=== PATIENT | female | born 1990 | race Caucasian/White ===

== ENCOUNTER → 2023-05-11 09:35 | Outpatient (CLI) | payer OTHER, SELFPAY ==
[2023-05-11 10:28] LABS: Influenza A - CEPHEID Flu A NEGATIVE (NEGATIVE); Influenza B - CEPHEID Flu B NEGATIVE (NEGATIVE); Respiratory Syncytial Virus Negative (Negative)
[2023-05-11 10:57] LABS: COVID-19 CEPHEID 4-PLEX PCR Negative (Negative)
== END ==
PROVIDERS: Visit Provider Physician Assistant
DX: R05.9 Cough, unspecified (principal); R09.81 Nasal congestion
CPT/HCPCS: 0241U

== ENCOUNTER → 2023-09-25 07:39 | Outpatient (CLI) | payer OTHER, SELFPAY ==
--- NOTE | 2023-09-25 07:42 | DI.MRI.S_ITS ---
PROCEDURE: MR BRAIN (IAC) WWO CON INDICATIONS: OTALGIA/TINNITUS/VERGITO TECHNIQUE: Noncontrast sagittal T1 spin echo, axial FLAIR, axial gradient echo, axial diffusion and ADC through the brain. Axial thin-slice 3D CISS, coronal TruFISP, axial T1 spin echo with fat saturation through the internal auditory canals. After the administration of contrast, thin slice axial and coronal T1 spin echo with fat saturation through the internal auditory canals, and axial and coronal and sagittal T1 spin echo with fat saturation through the brain. COMPARISON: None. FINDINGS: Image quality: Excellent. Cerebellopontine angles: No cerebellopontine angle masses. Inner ear structures appear normally formed. No suspicious enhancement in the internal auditory canal or along the course of the 7th cranial nerve. CSF spaces: Ventricles are normal in size and shape. No extra-axial fluid collections. Basal cisterns are patent. Brain: No intracranial bleeds or mass effects. Jeronimo-white matter interface is intact. No abnormal intracranial enhancement. Diffusion weighted images demonstrate no acute ischemic insults. Brainstem appears normal. Normal intravascular flow voids are present. Skull and face: Calvarial marrow signal is normal. Orbits appear normal. Sinuses: Sinuses and mastoids are clear. IMPRESSION: No significant abnormality is seen. Specifically, no masses or abnormal enhancement are seen within the cerebellopontine angle cisterns or within the internal auditory canals. Dictated by: Ramin Elder M.D. on 09/25/2023 at 9:49 Approved by: Ramin Elder M.D. on 09/25/2023 at 9:50
== END ==
LOC: MRI 07:40
PROVIDERS: PCP Family Medicine; Referring Provider Otolaryngology; Visit Provider Otolaryngology
DX: H92.01 Otalgia, right ear (principal); H93.11 Tinnitus, right ear; H93.291 Other abnormal auditory perceptions, right ear; H93.8X1 Other specified disorders of right ear; R42 Dizziness and giddiness; R20.2 Paresthesia of skin; G44.89 Other headache syndrome
CPT/HCPCS: 70553; A9579

== ENCOUNTER 2024-10-28 10:18 | Emergency (ER) | payer OTHER, SELFPAY ==
[2024-10-28 10:23] VITALS: BP 126/80; PULSE 88; RESP 16; TEMP 36.1; O2SAT 99; BMI 34.0
--- NOTE | 2024-10-28 12:08 | DI.CT.S_ITS ---
PROCEDURE: CT ABDOMEN PELVIS W CON INDICATIONS: Intractable vomiting, on semaglutide TECHNIQUE: After the administration of intravenous contrast, axial sections acquired from the lung bases to the pubic symphysis. Coronal and sagittal reformats were performed. For radiation dose reduction, the following was used: automated exposure control, adjustment of mA and/or kV according to patient size. COMPARISON: None. FINDINGS: Image quality: Diagnostic. Lower Chest: No significant findings. ABDOMEN: Liver: No solid mass. Gallbladder: No radiopaque gallstones or wall thickening. Biliary ducts: No biliary dilation. Pancreas: No ductal dilation. Spleen: Size is within normal limits. Adrenal Glands: No adrenal nodules. Kidneys and Ureters: Punctate nonobstructing right renal stone. No hydronephrosis. No solid mass. No complex renal cystic lesion which requires follow up. Stomach and Bowel: Normal colonic caliber, without significant wall thickening. Normal appendix. Peritoneum: No abnormal intraperitoneal fluid. No free air. Ventral Wall: No significant ventral hernia. Abdominal Nodes: No retroperitoneal or mesenteric adenopathy by size criteria. Vessels: Aorta and inferior vena cava are normal in size. PELVIS: Pelvic Organs: Left ovarian simple appearing cyst measuring 2.6 centimeters. Possible small posterior intramural fibroid. Bladder: No bladder wall thickening, accounting for underdistention. Pelvic Nodes: No enlarged lymph nodes. Miscellaneous: No inguinal hernias are seen. Bones: No aggressive osseous abnormality. IMPRESSION: 1. No acute findings within the abdomen or pelvis. 2. Punctate nonobstructing right renal stone. 3. Left ovarian simple appearing cyst measuring 2.6 centimeters. Dictated by: Landry Dunbar M.D. on 10/28/2024 at 13:24 Approved by: Landry Dunbar M.D. on 10/28/2024 at 13:27
--- NOTE | 2024-10-28 12:27 | ED_ITS ---
HPI - Nausea/Vomiting/Diarrhea <Gabby Bustillos PA-C - Last Filed: 10/28/24 15:59> General Chief complaint: Nausea/Vomiting/Diarrhea Stated complaint: semi glutide injections,Throwing up since her shot Time Seen by Provider: 10/28/24 11:58 Mode of arrival: Ambulatory History of Present Illness HPI Narrative: 34-year-old female presents to the ED with 2 days of intractable vomiting. Patient states that she received a injection of semaglutide 0.25 mg yesterday, following which she has been intractable vomiting. Patient has been on semaglutide since March 2024 for weight loss. She [facility] the [facility]. Patient states that in August, she went off the medication since she was moving. She restarted in September, has had 2 doses prior to yesterday's dose. Patient has thus far not experienced any adverse effects other than some minor constipation. This is the 1st instance patient has had a significant reaction to the medication. Patient states she has not been able to tolerate any p.o. and has vomited intractably. No abdominal pain, fever, cough, cold. No diarrhea. Related Data Previous Rx's Medication Instructions Recorded azelastine 205.5 mcg (0.15 %) 1 spray intranasal BID #30 mL 05/11/23 nasal spray metoclopramide HCl 10 mg tablet 10 mg PO Q6H PRN nausea and 10/28/24 (Reglan) vomiting #30 tabs ondansetron 4 mg disintegrating 4 mg PO Q8H PRN nausea and 10/28/24 tablet vomiting #30 tabs Allergies Allergy/AdvReac Type Severity Reaction Status Date / Time No Known Drug Allergies Allergy Verified 10/28/24 10:23 Review of Systems <Gabby Bustillos PA-C - Last Filed: 10/28/24 15:59> Constitutional Constitutional: Reports chills, Denies fatigue, Denies fever(s), Denies frequent falls, Denies lethargy and Denies weakness Eyes Eyes: Denies change in vision, Denies eye discharge, Denies irritation and Denies loss of vision ENT Ears, Nose, Mouth, and Throat: Denies change in voice, Denies dizziness, Denies neck pain, Denies sore throat and Denies throat swelling Cardiovascular Cardiovascular: Denies chest pain, Denies irregular heart rhythm, Denies lightheadedness, Denies palpitations, Denies dyspnea, Denies dyspnea on exertion and Denies orthopnea Respiratory Respiratory: Denies cough, Denies dyspnea, Denies dyspnea on exertion and Denies wheezing Gastrointestinal Gastrointestinal: Denies abdominal pain, Denies change in bowel habits, Denies diarrhea, Reports nausea and Reports vomiting Musculoskeletal Musculoskeletal: Denies neck pain and Denies numbness Integumentary/Breasts Skin/Breast: Denies pruritus, Denies erythema, Denies rash and Denies wounds Neurologic Neurologic: Denies behavioral changes, Denies confusion, Denies dizziness, Denies frequent falls, Denies loss of vision, Denies numbness and Denies weakness Psychiatric Psychiatric: Denies anxiety, Denies behavioral changes, Denies confusion, Denies depression, Denies homicidal ideation and Denies suicidal ideation Endocrine Endocrine: Denies fatigue, Denies flushing and Denies palpitations Hematologic/Lymphatic Hematologic/Lymphatic: Denies easy bruising Allergic/Immunologic Allergic/Immunologic: Denies urticaria, Denies throat swelling and Denies wheezing Patient History <Gabby Bustillos PA-C - Last Filed: 10/28/24 15:59> Social History Smoking Status: Unknown if ever smoked Smoking Status: Unknown if ever smoked Exam <Gabby Bustillos PA-C - Last Filed: 10/28/24 15:59> Narrative Exam Narrative: Const General:?cooperative, healthy appearing and comfortable [facility] Head:?normal to inspection Ears:?hearing grossly normal bilaterally Nose:?external nose normal Face and sinus:?normal facial exam and sinuses nontender Mouth:?oral mucosae normal Throat:?posterior oropharynx normal Eyes General:?appearance normal, both eyes and all related structures Neck Neck:?normal visual inspection and no lymphadenopathy noted Resp Effort & Inspection:?normal respiratory effort Auscultation:?clear to auscultation bilaterally Cardio Rate:?regular rate Rhythm:?regular rhythm GI Abdomen is soft, nondistended. Mild tenderness to palpation in the epigastric region. Neuro General:?patient alert, patient awake and patient oriented x3 Initial Vital Signs Initial Vital Signs: Vital Signs Temperature 97.0 F L 10/28/24 10:23 Pulse Rate 88 10/28/24 10:23 Respiratory Rate 16 10/28/24 10:23 Blood Pressure 126/80 10/28/24 10:23 Pulse Oximetry 99 10/28/24 10:23 Oxygen Delivery Method Room Air 10/28/24 10:23 <Natalee Mckee DO - Last Filed: 11/01/24 11:12> Initial Vital Signs Initial Vital Signs: Vital Signs Temperature 97.0 F L 10/28/24 10:23 Pulse Rate 88 10/28/24 10:23 Respiratory Rate 16 10/28/24 10:23 Blood Pressure 126/80 10/28/24 10:23 Pulse Oximetry 99 10/28/24 10:23 Oxygen Delivery Method Room Air 10/28/24 10:23 Course <Gabby Bustillos PA-C - Last Filed: 10/28/24 15:59> Orders Ordered: Discontinued Medications Diphenhydramine HCl (Diphenhydramine 50 Mg/Ml Vial) 25 mg IV NOW ONE Stop: 10/28/24 12:14 Last Admin: 10/28/24 12:37 Dose: 25 mg Documented By: GT Sodium Chloride (Normal Saline 0.9%) 1,000 mls @ 1,000 mls/hr IV BOLUS ONE Stop: 10/28/24 13:08 Last Infusion: 10/28/24 14:17 Dose: Infused Documented By: GT Admin: 10/28/24 12:37 Dose: 1,000 mls/hr Documented By: GT Metoclopramide HCl (Metoclopramide 10 Mg/2 Ml Inj) 10 mg IV NOW ONE Stop: 10/28/24 12:10 Last Admin: 10/28/24 12:38 Dose: 10 mg Documented By: GT Vital Signs Vital signs: Vital Signs - 8 hr 10/28/24 10:23 Temperature 97.0 F L Pulse Rate 88 Respiratory Rate 16 Blood Pressure 126/80 Pulse Oximetry 99 Oxygen Delivery Method Room Air <Natalee Mckee DO - Last Filed: 11/01/24 11:12> Orders Ordered: Discontinued Medications Diphenhydramine HCl (Diphenhydramine 50 Mg/Ml Vial) 25 mg IV NOW ONE Stop: 10/28/24 12:14 Last Admin: 10/28/24 12:37 Dose: 25 mg Documented By: GT Sodium Chloride (Normal Saline 0.9%) 1,000 mls @ 1,000 mls/hr IV BOLUS ONE Stop: 10/28/24 13:08 Last Infusion: 10/28/24 14:17 Dose: Infused Documented By: GT Admin: 10/28/24 12:37 Dose: 1,000 mls/hr Documented By: GT Metoclopramide HCl (Metoclopramide 10 Mg/2 Ml Inj) 10 mg IV NOW ONE Stop: 10/28/24 12:10 Last Admin: 10/28/24 12:38 Dose: 10 mg Documented By: GT Vital Signs Vital signs: Vital Signs - 8 hr 10/28/24 10:23 Temperature 97.0 F L Pulse Rate 88 Respiratory Rate 16 Blood Pressure 126/80 Pulse Oximetry 99 Oxygen Delivery Method Room Air MDM - Nausea/Vomiting/Diarrhea <Gabby Bustillos PA-C - Last Filed: 10/28/24 15:59> Lab Data 10/28/24 12:20 10/28/24 12:20 Labs: Lab Results 10/28/24 Range/Units 12:20 WBC 17.4 H (4.5-11.0) X10^3/uL RBC 4.78 (4.0-5.2) X10^6/uL Hgb 13.6 (12.0-16.0) g/dL Hct 41.3 (36-46) % MCV 86.4 (80-100) fL MCH 28.4 (26-34) PG MCHC 32.9 (30-36) % RDW 14.3 (11.6-14.8) % Plt Count 340 (150-400) X10^3/uL Neut % (Auto) 87.8 H (50-75) % Lymph % (Auto) 7.0 L (25-40) % [place] % (Auto) 4.7 (3-14) % Eos % (Auto) 0.1 L (2-4) % Baso % (Auto) 0.4 (0-2) % Neut # (Auto) 50603 H (0560-8862) /uL Lymph # (Auto) 1200 (2875-2403) /uL [place] # (Auto) 800 (0-900) /uL Eos # (Auto) 0 (0-450) /uL Baso # (Auto) 100 (0-100) /uL Sodium 140 (137-145) mmol/L Potassium 3.9 (3.4-5.1) mmol/L Chloride 102 (98-107) mmol/L Carbon Dioxide 25 (22-32) mmol/L BUN 14 (7-17) mg/dL Creatinine 0.88 (0.52-1.04) mg/dL Estimated GFR > 60 (>60) mL/min BUN/Creatinine Ratio 15.9 (6-22) Glucose 104 H (70-100) mg/dL Lactate 1.7 (0.7-2.1) mmol/L Calcium 9.4 (8.4-10.2) mg/dL Total Bilirubin 0.7 (0.2-1.3) mg/dL AST 32 (14-36) IU/L ALT 33 (<35) IU/L Alkaline Phosphatase 78 (38-126) U/L Total Protein 8.5 H (6.3-8.2) g/dL Albumin 5.0 (3.5-5.0) g/dL Globulin 3.5 (1.7-4.1) g/dL Albumin/Globulin Ratio 1.4 (1.0-2.8) Lipase 462 H (23-300) U/L Urine RBC None seen (0-5/HPF) Urine WBC 1-5/hpf (0-5/HPF) Ur Squamous Epith Cells None seen (0-5/HPF) Urine Bacteria Many (>30) H (None) Ur Culture Indicated? Specimen cultured Vol Urine Centrifuged 10ml (spun) Point of Care Testing Test Results Negative Urine Dip Bedside Urine Glucose Negative Bedside Urine Bilirubin - Negative Bedside Urine Ketone +++ 80 Urine Specific [place] 1.010 Bedside Urine Occult Blood - Negative Bedside Urine pH 8.5 Bedside Urine Protein +/- 15 Bedside Urine Urobilinogen - Negative Bedside Urine Nitrite - Negative Bedside Urine Leukocytes +/- 15 Esterase MDM Narrative Medical decision making narrative: 34-year-old female presents to the ED with 2 days of intractable vomiting. Concern for dehydration versus electrolyte derangements versus bowel obstruction versus gastroparesis versus pancreatitis versus biliary etiology versus other. Will obtain labs, UA, urine , CT abdomen pelvis. Will give IV fluids, Reglan, Benadryl. Will reassess. CT abdomen pelvis shows no acute intra-abdominal pathology. Incidental finding of a nonobstructing right renal stone. White count elevated to 17, likely reactive from the vomiting. Chest x-ray, UA with no signs of infection. Patient responded well to medications, passed a p.o. challenge. Patient's symptoms likely related to yesterday's dose of semaglutide. Counseled patient on staying consistent with the medication, eating lightly around the new dosage, taking Zofran and Reglan for symptoms. Recommend follow-up with PCP as soon as possible. ED return precautions discussed with patient. Patient verbalized understanding. Medical records reviewed: Yes <Natalee Mckee DO - Last Filed: 11/01/24 11:12> Lab Data Labs: Lab Results 10/28/24 Range/Units 12:20 WBC 17.4 H (4.5-11.0) X10^3/uL RBC 4.78 (4.0-5.2) X10^6/uL Hgb 13.6 (12.0-16.0) g/dL Hct 41.3 (36-46) % MCV 86.4 (80-100) fL MCH 28.4 (26-34) PG MCHC 32.9 (30-36) % RDW 14.3 (11.6-14.8) % Plt Count 340 (150-400) X10^3/uL Neut % (Auto) 87.8 H (50-75) % Lymph % (Auto) 7.0 L (25-40) % [place] % (Auto) 4.7 (3-14) % Eos % (Auto) 0.1 L (2-4) % Baso % (Auto) 0.4 (0-2) % Neut # (Auto) 83340 H (9282-1135) /uL Lymph # (Auto) 1200 (8622-0986) /uL [place] # (Auto) 800 (0-900) /uL Eos # (Auto) 0 (0-450) /uL Baso # (Auto) 100 (0-100) /uL Sodium 140 (137-145) mmol/L Potassium 3.9 (3.4-5.1) mmol/L Chloride 102 (98-107) mmol/L Carbon Dioxide 25 (22-32) mmol/L BUN 14 (7-17) mg/dL Creatinine 0.88 (0.52-1.04) mg/dL Estimated GFR > 60 (>60) mL/min BUN/Creatinine Ratio 15.9 (6-22) Glucose 104 H (70-100) mg/dL Lactate 1.7 (0.7-2.1) mmol/L Calcium 9.4 (8.4-10.2) mg/dL Total Bilirubin 0.7 (0.2-1.3) mg/dL AST 32 (14-36) IU/L ALT 33 (<35) IU/L Alkaline Phosphatase 78 (38-126) U/L Total Protein 8.5 H (6.3-8.2) g/dL Albumin 5.0 (3.5-5.0) g/dL Globulin 3.5 (1.7-4.1) g/dL Albumin/Globulin Ratio 1.4 (1.0-2.8) Lipase 462 H (23-300) U/L Urine RBC None seen (0-5/HPF) Urine WBC 1-5/hpf (0-5/HPF) Ur Squamous Epith Cells None seen (0-5/HPF) Urine Bacteria Many (>30) H (None) Ur Culture Indicated? Specimen cultured Vol Urine Centrifuged 10ml (spun) Point of Care Testing Test Results Negative Urine Dip Bedside Urine Glucose Negative Bedside Urine Bilirubin - Negative Bedside Urine Ketone +++ 80 Urine Specific [place] 1.010 Bedside Urine Occult Blood - Negative Bedside Urine pH 8.5 Bedside Urine Protein +/- 15 Bedside Urine Urobilinogen - Negative Bedside Urine Nitrite - Negative Bedside Urine Leukocytes +/- 15 Esterase Discharge Plan Departure Patient Disposition: Home Clinical Impression: Acute vomiting Instructions: DI for Vomiting -- Adult Activity Restrictions/Additional Instructions: You were evaluated in the ED today for persistent vomiting. Your workup today did not show any abnormalities that can explain your symptoms today. There is a right-sided kidney stone that is nonobstructing and should not be causing you any symptoms at this time. You may follow-up with your PCP regarding preventative measures for further stone development. It appears that your symptoms today are likely related to yesterday's dose of semaglutide. It is common for people to experience nausea and vomiting for a day or so after a dose. It is also advised that you not interrupt your weekly doses, since the chances of side-effects increase with starting and stopping the medication. Your symptoms today improved with Reglan, Benadryl and IV fluids. You are being prescribed Zofran and Reglan. Please follow-up with your PCP, prescribing doctor for semaglutide as soon as possible. Return to the ED if you have worsening symptoms. Prescriptions: New metoclopramide HCl [Reglan] 10 mg tablet 10 mg PO Q6H PRN (Reason: nausea and vomiting) Qty: 30 0RF ondansetron 4 mg tablet,disintegrating 4 mg PO Q8H PRN (Reason: nausea and vomiting) Qty: 30 0RF No Action azelastine 205.5 mcg (0.15 %) spray,non-aerosol 1 spray intranasal BID Qty: 30 0RF Rx Instructions: administer into each nostril Referrals: Eliza Ocampo MD [Primary Care Provider] - Stand Alone Forms: Patient Portal/API/Survey ED Sign-out <Natalee Mckee DO - Last Filed: 11/01/24 11:12> Cosign ED Attending Elin Attestation: I was available for consultation.
[2024-10-28 12:37] LABS: Add Manual Diff / Slide Review NO; Basophils Absolute Auto 100 /uL (0-100); Basophils Percent Auto 0.4 % (0-2); Eosinophils Absolute Auto 0 /uL (0-450); Eosinophils Percent Auto 0.1 % (2-4); Hematocrit 41.3 % (36-46); Hemoglobin 13.6 g/dL (12.0-16.0); Lymphocytes Absolute Auto 1200 /uL (1100-4500); Mean Corpuscular HGB Conc 32.9 % (30-36); Mean Corpuscular Hemoglobin 28.4 PG (26-34); Mean Corpuscular Volume 86.4 fL (80-100); Monocytes Absolute Auto 800 /uL (0-900); Monocytes Percent Auto 4.7 % (3-14); Neutrophils Absolute Auto 15300 /uL (1500-7000); Neutrophils Percent Auto 87.8 % (50-75); Platelet Count 340 X10^3/uL (150-400); Red Blood Cell Count 4.78 X10^6/uL (4.0-5.2); Red Cell Distribution Width 14.3 % (11.6-14.8); White Blood Cell Count 17.4 X10^3/uL (4.5-11.0)
[2024-10-28] MEDS: diphenhydrAMINE 50 MG/ML VIAL 25 MG IV (12:37)
[2024-10-28] MEDS: SODIUM CHLORIDE 0.9% 1,000 ML 1000 ML IV (12:37)
[2024-10-28] MEDS: METOCLOPRAMIDE 10 MG/2 ML INJ IV (12:38)
[2024-10-28 12:48] LABS: Alanine Aminotransferase 33 IU/L (<35); Albumin Globulin Ratio 1.4 (1.0-2.8); Alkaline Phosphatase 78 U/L (38-126); Aspartate Aminotransferase 32 IU/L (14-36); BUN Creatinine Ratio 15.9 (6-22); Bilirubin Total 0.7 mg/dL (0.2-1.3); Blood Urea Nitrogen 14 mg/dL (7-17); Calcium 9.4 mg/dL (8.4-10.2); Carbon Dioxide 25 mmol/L (22-32); Chloride 102 mmol/L (98-107); Estimated Glomerular Filt Rate > 60 mL/min (>60); Globulin 3.5 g/dL (1.7-4.1); Glucose 104 mg/dL (70-100); HEMOLYSIS < 15 (0-50); Lipase 462 U/L (23-300); Potassium 3.9 mmol/L (3.4-5.1); Sodium 140 mmol/L (137-145); Total Protein 8.5 g/dL (6.3-8.2)
[2024-10-28 12:49] LABS: Lactate (Lactic Acid) 1.7 mmol/L (0.7-2.1); Urine Volume 10mL (spun)
[2024-10-28 12:52] LABS: Bacteria Urine Many (>30); Culture Indicated Urine Specimen Cultured; RBC Urine None Seen (0-5/HPF); Squamous Epithelial Cell Urine None Seen (0-5/HPF); WBC Urine 1-5/HPF (0-5/HPF)
--- NOTE | 2024-10-28 13:17 | DI.RAD.S_ITS ---
PROCEDURE: XR CHEST 2V INDICATIONS: vomiting; leukocytosis TECHNIQUE: 2 views of the chest were acquired. COMPARISON: None. FINDINGS: Surgical changes and devices: None. Lungs and pleura: Lungs are clear. No pleural effusions or pneumothorax. Mediastinum: Mediastinal contours are normal. Heart size is normal. Bones and chest wall: No suspicious bony abnormalities. Soft tissues appear unremarkable. IMPRESSION: No acute cardiopulmonary abnormality is seen. Dictated by: Landry Dunbar M.D. on 10/28/2024 at 14:17 Approved by: Landry Dunbar M.D. on 10/28/2024 at 14:17
[2024-10-28 16:20] VITALS: BP 113/65; PULSE 89; RESP 18; O2SAT 99
== END 2024-10-28 16:21 | disposition home or self-care (01) ==
PROVIDERS: Emergency Provider Student in an Organized Health Care Education/Training Program; PCP Family Medicine
DX: R11.10 Vomiting, unspecified (principal); Z79.899 Other long term (current) drug therapy
CPT/HCPCS: 36415; 71046; 74177; 80053; 81003; 81015; 81025; 83605; 83690; 85025; 87086; 96361; 96374; 96375; 99284; J1200; J2765; Q9967